=== PATIENT | female | born 1970 | race Caucasian/White ===

== ENCOUNTER 2016-12-26 11:31 | Observation (INO) ==
[2016-12-26 12:08] LABS: Bilirubin,Urine Negative (Negative); Blood,Urine Large (Negative); Clarity,Urine Clear (Clear); Color,Urine Yellow (Yellow); Glucose,Urine (UA) Normal (Normal); Ketones,Urine Negative (Negative); Leukocyte Esterase,Urine Negative (Negative); Nitrite,Urine Negative (Negative); PH,Urine 6.5 pH Units (5.0-8.0); Protein,Urine Negative (Neg-Trace); Specific Gravity,Urine 1.007 (1.010-1.025); Urobilinogen,Urine Normal (Normal)
--- NOTE | 2016-12-26 12:12 | Emergency Department Note ---
Disposition Clinical Impression: Appendiceal abscess Disposition: Admitted As Inpatient Condition: Good Referrals: Elizabeth Ayers CNP [Primary Care Provider] - Forms: ED Satisfaction Letter, Work/School Release General Adult HPI - General Chief complaint: ED Abdominal Pain Stated complaint: Referral for appendicitis Time Seen by Provider: 12/26/16 11:40 Source: patient Limitations: no limitations - History of Present Illness HPI Narrative: Patient sent from her doctor's office for evaluation for possible appendicitis. Was originally seen by her doctor 3 weeks ago and diagnosed with pyelonephritis, prescribed Macrobid. Completed a seven-day course. She had 100.6 temperature at that point, felt febrile over the course of the following week, but has not had fever since. She vomited once on the day of presentation to her physician, but has not vomited since. No further nausea. She does have lack of appetite. Pain was made worse with bumps on the way home from the doctor's office 3 weeks ago, but she said none of these symptoms since then. Walking makes it a little bit worse. It is present most of the time with intermittent waves of worsening. It occasionally radiates towards her groin. No left-sided symptoms. She has been having a normal number of loose, nonbloody stools. She is status post cholecystectomy, tubal ligation, , has not had a hysterectomy and appendectomy. She has had no further hematuria , dysuria, frequency or urgency. She was having her. When she presented initially 3 weeks ago, no vaginal bleeding since, no vaginal discharge. No cough, chest pain or shortness of breath. Pain Scale: 5 - Related Data Allergies Allergy/AdvReac Type Severity Reaction Status Date / Time ciprofloxacin [From Cipro] Allergy Back Pain Verified 12/26/16 11:35 levofloxacin [From Levaquin] Allergy Back Pain Verified 12/26/16 11:35 All systems ED: reviewed and negative except as stated. Past Medical History - Past Medical History Medical history: Reports: no medical history Psychiatric history: Reports: no psych history - Social History Smoking Status: Never smoker Smokeless Tobacco Status: No Alcohol use: Reports: none Drug use: Reports: none Physical Exam Vital signs noted please see nurse's notes. Gen.: Well-developed, well-nourished patient lying in bed who appears nontoxic. Head: Atraumatic, normocephalic. Eyes: Sclerae anicteric. ENT: Mucous membranes moist. Heart: Regular rate and rhythm without appreciable murmur. Lungs: Normal respiratory pattern without respiratory distress, lungs clear to auscultation bilaterally. Abdomen: Soft, right periumbilical and right upper quadrant tenderness, no guarding. Minimal tenderness in the left lower quadrant right lower quadrant, no tenderness over McBurney's point. No rebound. Negative Rovsing. Back: No CVA tenderness. Skin: Warm and dry without rash. Neurologic: Awake, alert with normal speech and mental status. Cranial nerves grossly intact. No focal deficits or lateralizing signs. Psychiatric: Normal mood and affect. - General Limitations: no limitations General appearance: alert, in no apparent distress Course Vital Signs Temperature 98.3 F 12/26/16 11:32 Pulse Rate 105 12/26/16 11:32 Respiratory Rate 18 12/26/16 11:32 Blood Pressure 154/87 12/26/16 11:32 O2 Sat by Pulse Oximetry 97 12/26/16 11:32 Temperature 98.3 F 12/26/16 11:32 Pulse Rate 92 12/26/16 12:31 Respiratory Rate 16 12/26/16 12:31 Blood Pressure 158/93 12/26/16 12:31 O2 Sat by Pulse Oximetry 95 12/26/16 12:31 Oxygen Delivery Oxygen Delivery Room Air Medical Decision Making - [facility] Narrative Medical decision making narrative: Presentation not typical for appendicitis, she has had symptoms for 3 weeks, is not tender over McBurney's point, has not had fever since she initially presented with what her doctor diagnosed as a kidney infection. It is possible however that she had appendicitis when she initially presented 3 weeks ago, and since ruptured and walled off. I do not consider this likely, considering how nontoxic she is in appearance, but it is in the differential. If she truly had a pyelonephritis as opposed to febrile cystitis on presentation 3 weeks ago, Macrobid would not have been the best choice. Untreated or undertreated pyelonephritis can lead to Other complications such as perinephric abscess that should be ruled out. Again, my suspicion for these is low, given how nontoxic in appearance she is and her lack of peritoneal signs. Suspicion for dangerous process is low based on the timeline and her nontoxic appearance, however she does have a fairly significant level of tenderness and a somewhat concerning history. I discussed this with her in detail, including a discussion of the downsides of CT scanning including cost, contrast administration and radiation. We will proceed with CT scan at this point, as I believe that the risks of missing an important diagnosis, although low, outweigh the potential risks of CT scanning. - Lab Data Lab Results 12/26/16 12/26/16 Range/Units 11:58 11:58 Urine Color Yellow (Yellow) Urine Clarity Clear (Clear) Urine pH 6.5 (5.0-8.0) pH Units Ur Specific [place] 1.007 L (1.010-1.025) Urine Protein Negative (Neg-Trace) mg/dL Urine Glucose (UA) Normal (Normal) mg/dL Urine Ketones Negative (Negative) mg/dL Urine Blood Large H (Negative) Urine Nitrite Negative (Negative) Urine Bilirubin Negative (Negative) Urine Urobilinogen Normal (Normal) mg/dL Ur Leukocyte Esterase Negative (Negative) Urine Microscopic RBC 3-5 H (0-3) per hpf Urine Microscopic WBC 3-5 H (0-3) per hpf Ur Squamous Epith Cells Few (None-Few) per lpf Urine Bacteria Few (None-Few) per hpf Urine Test Negative (Negative)
[2016-12-26 12:14] LABS: Bacteria,Urine Few per hpf (None-Few); Squamous Epithelial Cell,Urine Few per lpf (None-Few)
[2016-12-26] MEDS ORDERED: PIPERACILLIN IVPB ONE (13:06)
[2016-12-26] MEDS ORDERED: D5 IVPB ONE (13:06)
[2016-12-26] MEDS ORDERED: TAZOBACTAM IVPB ONE (13:06)
[2016-12-26] MEDS ORDERED: WATER IVPB ONE (13:06)
[2016-12-26 13:23] LABS: Basophils % 0.3 %; Eosinophils % 0.1 %; Hematocrit 31.6 % (35.3-44.9); Hemoglobin 10.2 g/dL (11.5-15.4); Immature Granulocytes % 0.4 % (0-4); Lymphocytes # 1.1 K/mcL (0.6-4.6); Mean Corpuscular HGB Conc 32.3 g/dL (31.6-35.5); Mean Corpuscular Hemoglobin 27.9 pg (28.0-33.3); Mean Corpuscular Volume 86.6 fL (83.0-100.0); Mean Platelet Volume 9.6 fL (9.4-12.4); Monocytes # 0.7 K/mcL (0.0-1.3); Monocytes % 7.1 %; Neutrophils # 8.1 K/mcL (1.6-8.9); Platelet Count 351 K/mcL (140-400); Red Blood Count 3.65 M/mcL (3.82-4.97); Red Cell Distribution Width 14.1 % (11.5-14.5); Segmented Neutrophils % 81.1 %
[2016-12-26 13:31] LABS: BUN/Creatinine Ratio 12 (6-26); Blood Urea Nitrogen 8 mg/dL (7-20); Calcium 8.4 mg/dL (8.6-10.8); Carbon Dioxide 23 mEq/L (19-29); Chloride 104 mEq/L (98-109); Glucose 100 mg/dL (70-99); Osmolality,Calculated 284 (280-300); Potassium 3.7 mEq/L (3.5-4.5); Sodium 138 mEq/L (136-145); eGFR For African Americans > 60 (> 60); eGFR For Non-African Americans > 60 (> 60)
[2016-12-26] MEDS ORDERED: Ondansetron 4 MG/2 ML VIAL IVP PRN (14:20)
[2016-12-26] MEDS ORDERED: Naloxone 0.4 MG/ML INJ IVP PRN (14:20)
[2016-12-26] MEDS ORDERED: *HR* HYDROmorphone (PF) 1 MG/ML SYRINGE IVP PRN (14:22)
[2016-12-26] MEDS ORDERED: Acetaminophen 325 MG TABLET PO PRN (14:22)
[2016-12-26] MEDS ORDERED: *HR* OxyCODONE/APAP 5/325 TABLET PO PRN (14:22)
[2016-12-26] MEDS ORDERED: 0.9 % Sodium Chloride 1,000 ML IVC SCH (14:30)
--- NOTE | 2016-12-26 14:34 | General Surg History&Physical ---
Date of Encounter: 12/26/16 Time of Encounter: 14:30 Assessment and Plan (1) Appendiceal abscess Current Visit: Yes Status: Acute The assessment and plan as outlined above was discussed with the patient and/or family members who expressed understanding and agreement. All questions were answered. NPO for IR drainage of periappendiceal abscess Regular diet after drainage IV antibiotics- Zosyn IV fluids- 75ml/hour Cultures from periappendiceal abscess- orders entered for IR Supportive care and pain control PPI therapy daily IS every 1 hour while awake Ambulate hallways TID Plan for interval appendectomy in 6-[address] Brower (2) Pulmonary nodule, left Current Visit: Yes Status: Acute The assessment and plan as outlined above was discussed with the patient and/or family members who expressed understanding and agreement. All questions were answered. Patient will need follow CT to re-evaluate nodule in 6-12 months per Fleischner guidelines (3) DVT prophylaxis Current Visit: Yes Status: Acute The assessment and plan as outlined above was discussed with the patient and/or family members who expressed understanding and agreement. All questions were answered. Ambulate hallways TID with assistance History of Present Illness Chief complaint: Abdominal discomfort HPI: Ms. 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 She states that she had onset of right-sided abdominal pain approximately 3 weeks ago. At that time she presented to her primary care provider office and was treated for a UTI. She states she was given Macrobid for 7 days and that her pain did initially improve. She states that after a few days the pain began to progress. She states that she attributed the pain to an ongoing UTI and treated it with supportive measures at home. 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 On ultrasound, were they were too able to see an irregular fluid collection on imaging. She was sent to the emergency department for further workup and evaluation. The patient states that her pain is intermittent and she describes it as a sharp and stabbing pain at times. She states that the pain has not affected her activities of daily living and that she is continued to work for the last 3 weeks. She states that she has no appetite but denies any weight loss. She denies any nausea or vomiting. She did have fevers up to 100.6 (3 weeks ago) but states she has had no recurrence of fever since that time. She does have occasional chills. Denies any difficulty with urination. Denies any shortness of breath or chest pains. She did have a CAT scan evaluation in the emergency department which did show evidence of a perforated appendicitis with periappendiceal abscess. The patient 's been admitted to the hospital for further workup and treatment. Past Med Surg Social Fam HX - Past Medical History Source: patient Medical history: no medical history Psychiatric history: no psych history - Past Surgical History Surgical History: (X2), cholecystectomy, other (Tubal ) - Social History Smoking Status: Never smoker Smokeless Tobacco Status: No Alcohol use: none Drug use: none Occupational status: employed Current living situation: Home - Independent Activity Level: Independent ambulation - Family History Mother Living Status: Still Living Hx Family Autoimmune Disorders: Yes (Rheumatoid arthritis) Father Living Status: Still Living Hx Family Cardiac Disorders: Yes (CAD) Hx Family Cancer: Yes (Bladder, Prostate, Skin) Sister Living Status: Still Living Hx Family Cardiac Disorders: Yes (HTN) Medications and Allergies No Known Home Drugs 12/26/16 [History] 3 Allergy/AdvReac Type Severity Reaction Status Date / Time ciprofloxacin [From Cipro] Allergy Back Pain Verified 12/26/16 11:35 levofloxacin [From Levaquin] Allergy Back Pain Verified 12/26/16 11:35 Review of Systems All systems PM: reviewed and no additional remarkable complaints except as stated (in the HPI) All systems PM: A 10-system review of systems was performed and is negative for pertinent findings except as documented above in the HPI. General Surgery Exam Initial Vital Signs Temp Pulse Resp BP Pulse Ox 98.3 F 105 18 154/87 97 12/26/16 11:32 12/26/16 11:32 12/26/16 11:32 12/26/16 11:32 12/26/16 11:32 - General physical appearance well developed, well nourished, no distress - Eyes normal ocular movement - ENT normal mucosa, atraumatic, normocephalic - Neck trachea midline - Respiratory normal expansion, normal respiratory effort, clear to auscultation - Cardiovascular Cardiovascular exam: Present: RRR - Abdomen Abdomen general surgery: Present: bowel sounds present, soft, tender (mildly) Abdominal Tenderness: Present: RUQ - Integumentary Integumentary general surgery: Present: warm and dry - Neurologic Present: CN 2-12 grossly intact - Musculoskeletal Present: normal gait, normal posture - Psychiatric Psychiatric general surgery: Present: appropriate, oriented to person, oriented to place, oriented to time, speech is normal, memory intact Results - Labs 12/26/16 13:14 12/26/16 13:14 Abnormal lab results RBC 3.65 M/mcL (3.82-4.97) L 12/26/16 13:14 Hgb 10.2 g/dL (11.5-15.4) L 12/26/16 13:14 Hct 31.6 % (35.3-44.9) L 12/26/16 13:14 MCH 27.9 pg (28.0-33.3) L 12/26/16 13:14 Glucose 100 mg/dL (70-99) H 12/26/16 13:14 Calcium 8.4 mg/dL (8.6-10.8) L 12/26/16 13:14 Ur Specific [place] 1.007 (1.010-1.025) L 12/26/16 11:58 Urine Blood Large (Negative) H 12/26/16 11:58 Urine Microscopic RBC 3-5 per hpf (0-3) H 12/26/16 11:58 Urine Microscopic WBC 3-5 per hpf (0-3) H 12/26/16 11:58 Diabetes panel 12/26/16 Range/Units 13:14 Sodium 138 (136-145) mEq/L Potassium 3.7 (3.5-4.5) mEq/L Chloride 104 (98-109) mEq/L Carbon Dioxide 23 (19-29) mEq/L BUN 8 (7-20) mg/dL Creatinine 0.68 (0.57-1.11) mg/dL Glucose 100 H (70-99) mg/dL Calcium 8.4 L (8.6-10.8) mg/dL Calcium panel 12/26/16 Range/Units 13:14 Calcium 8.4 L (8.6-10.8) mg/dL Pituitary panel 12/26/16 Range/Units 13:14 Sodium 138 (136-145) mEq/L Potassium 3.7 (3.5-4.5) mEq/L Chloride 104 (98-109) mEq/L Carbon Dioxide 23 (19-29) mEq/L BUN 8 (7-20) mg/dL Creatinine 0.68 (0.57-1.11) mg/dL Glucose 100 H (70-99) mg/dL Calcium 8.4 L (8.6-10.8) mg/dL Adrenal panel 12/26/16 Range/Units 13:14 Sodium 138 (136-145) mEq/L Potassium 3.7 (3.5-4.5) mEq/L Chloride 104 (98-109) mEq/L Carbon Dioxide 23 (19-29) mEq/L BUN 8 (7-20) mg/dL Creatinine 0.68 (0.57-1.11) mg/dL Glucose 100 H (70-99) mg/dL Calcium 8.4 L (8.6-10.8) mg/dL All other labs normal. - Imaging CT scan - abdomen: report reviewed CT scan - pelvis: report reviewed Additional studies: Abdomen/Pelvis CT 12/26/16 12:08 IMPRESSION: 1. CT evidence compatible with perforated appendicitis with a right lower quadrant abscess measuring 7.2 x 4.3 x 4.7 cm. 2. Prominent soft tissues identified in the base of the cecum near the origin of the appendix (series 2, image 87 and coronal image 57). Findings may represent reactive wall thickening related to perforated appendicitis. Malignancy remains a differential consideration. 3. Mild diverticulosis. 4. 8 mm left lower lobe pulmonary nodule. According to current guidelines, CT at 6-12 months is recommended. Findings were discussed with Dr. Arboleda on 12/26/2016 at 1 p.m. RECOMMENDATIONS: Fleischner Society guidelines for follow-up and management of incidentally detected pulmonary nodules: Single Solid Nodule: Nodule size equals 6-8 mm In a low-risk patient, CT at 6-12 months, then consider CT at 18-24 months. In a high-risk patient, CT at 6-12 months, then CT at 18-24 months. Radiology 2017 http://pubs.rsna.org/doi/full/10.1148/radiol.[email or web address] D/ / 12/26/2016 13:20:53 Chey Talbot MD / robe Interpreting Provider: Chey Talbot MD - Attending Attestation For this encounter, I have reviewed the PUPPET DEVELOPER or PA documentation, treatment plan, and medical decision making; and I have had face to face time with this patient.
[2016-12-26] MEDS ORDERED: *HR* Midazolam HCl 2 MG/2 ML VIAL IVP ONE (14:57)
[2016-12-26] MEDS ORDERED: *HR* FentaNYL (PF) 100 MCG/2 ML VIAL IVP ONE (14:57)
--- NOTE | 2016-12-26 14:59 | Pre-Sedation Evaluation ---
Pre-sedation evaluation - Pre-sedation checklist Date of procedure: 12/26/16 Procedure: Abscess drainage Recent Vitals: Last Vital Signs Temp 98.3 F 12/26/16 13:55 Pulse 90 12/26/16 13:55 Resp 16 12/26/16 13:55 BP 137/82 12/26/16 13:55 Pulse Ox 96 12/26/16 13:55 H&P (including ROS) documented in medical record: Yes Previous reaction to sedatives/anesthetics: No Dietary Status: NPO 6 hours prior to procedure Airway Assessment: Patient can open mouth completely, TMJ function normal, Micrognathia (under-bite, receding chin) absent, Neck with adequate range of motion Possible difficult airway: No ASA Classification *see protocol: CLASS II-Mild systemic disease Plan of Care: Pt appropriate candidate for procedure/moderate/conscious sedation , Risks/benefits of procedure/sedation discussed w/ patient/family, If not NPO; Risk of intake outweiged by necessity to perform procedure
[2016-12-26] MEDS ORDERED: *HR* Midazolam HCl 2 MG/2 ML VIAL ONE (15:00)
[2016-12-26] MEDS ORDERED: 0.9 % Sodium Chloride 500 ML ONE (15:00)
[2016-12-26] MEDS ORDERED: *HR* FentaNYL (PF) 100 MCG/2 ML VIAL ONE (15:00)
--- NOTE | 2016-12-26 15:18 | IR Procedure Note ---
Date of procedure: 12/26/16 Consent Obtained: Written consent Timeout: Correct patient and procedure verified, Correct site verified, Time out performed, Skin prep completed Indications: RLQ abscess Procedure Performed: drain Site/Technique: 14F drain in RLQ Results/Findings: removed 40cc of thick smelly pus Estimated blood loss (cc): 2 Complications: None; Tolerated procedure well Post Procedure Treatment Plan: suction bulb
[2016-12-26] MEDS: Ibuprofen 800 MG TABLET PO SCH (16:01)
[2016-12-26] MEDS: Piperacillin/Tazobactam 3.375 GM in D5% in Water 50 ML IVPB SCH (16:53)
[2016-12-27] MEDS: Piperacillin/Tazobactam 3.375 GM in D5% in Water 50 ML IVPB SCH ×2 (00:59→08:23)
[2016-12-27] MEDS: Ibuprofen 800 MG TABLET PO SCH ×2 (00:59→08:24)
[2016-12-27] MEDS ORDERED: Ringers Solution, Lactated 500 ML IVC ONE (02:08)
--- NOTE | 2016-12-27 11:03 | Discharge Summary ---
Date of Encounter: 12/27/16 Time of Encounter: 10:59 - Discharge Diagnosis (1) Appendiceal abscess Priority: Primary Status: Acute - Discharge Medications Prescriptions: Ibuprofen [Motrin] 800 mg PO Q8HR #30 tablet Amoxicillin/Clavulanate [Augmentin] 875 mg PO BIDWM #28 tablet metroNIDAZOLE [Flagyl] 500 mg PO TID #42 tablet Home Medications: Amoxicillin/Clavulanate [Augmentin] 875 mg PO BIDWM #28 tablet 12/27/16 [Rx] Ibuprofen [Motrin] 800 mg PO Q8HR #30 tablet 12/27/16 [Rx] metroNIDAZOLE [Flagyl] 500 mg PO TID #42 tablet 12/27/16 [Rx] Allergies/Adverse Reactions: 3 Allergy/AdvReac Type Severity Reaction Status Date / Time ciprofloxacin [From Cipro] Allergy Back Pain Verified 12/26/16 11:35 levofloxacin [From Levaquin] Allergy Back Pain Verified 12/26/16 11:35 General Surgery Exam Initial Vital Signs Temp Pulse Resp BP Pulse Ox 98.3 F 105 18 154/87 97 12/26/16 11:32 12/26/16 11:32 12/26/16 11:32 12/26/16 11:32 12/26/16 11:32 - General physical appearance well developed, well nourished, no distress - Neck no bruits, trachea midline, no lymphadectomy, no venous distension - Respiratory normal expansion, normal respiratory effort, clear to percussion, clear to auscultation - Cardiovascular Cardiovascular exam: Present: RRR, 15, 16 - Abdomen Abdomen general surgery: Present: bowel sounds present, soft, wound (BILL drain with small amount of purluent material) Hernia: Present: none - Integumentary Integumentary general surgery: Present: warm and dry, no abnormal pigmentation - Neurologic Present: CN 2-12 grossly intact, normal coordination, normal sensation - Musculoskeletal Present: normal gait, normal posture - Psychiatric Psychiatric general surgery: Present: A&Ox3, appropriate, oriented to person, oriented to place, oriented to time, speech is normal, memory intact Date of admission: 12/26/16 13:12 Primary care physician: Elizabeth Ayers, Consults: 12/26/16 14:15 Consult to Interventional Radiology [CONS] Stat Consulting Provider: Radiology Interventional Cols Reason for Consult: IR drain placement of periappendiceal abscess Time Notified: 14:16 Call Completed: Yes Discharging clinician: Jeremiah Brower (Colt Dwyer) Anticipated date of discharge: 12/27/16 - Patient Status Disposition: Home, Self-Care Condition: Good Functional capacity at discharge: independent ambulation Overall status at discharge: patient is progressing back to baseline - Discharge Instructions Instructions: [facility] Drain Care (DC) Follow Up With: Elizabeth Ayers CNP [Primary Care Provider] - Iman Dwyer CNP [Advanced Practice Nurse] - 01/12/17 8:00 am Additional Instructions: Take your antibiotics as directed. Return to the office for your follow-up appointment Record you BILL output and bring this to your follow-up appointment. - Diet and Activity Activity: increase activity as tolerated Diet: advance to your usual diet - Hospital Course Hospital course: Ms. Almazan is a 46 year old female who presented on 12/26/2016 with complaints of abdominal discomfort. 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 She had recently been diagnosed/treated for a UTI and was given Macrobid for 7 days that did improve her pain initially. She had a fever of 100.6 apparently 3 weeks ago but had no recurrence of fever. Her CAT scan evaluation in the emergency department showed evidence of a perforated appendix with periappendeceal abscess. She was taken to IR where she had a drain placed and noted 40 ml of purulent material returned. She is ambulating and voiding without difficulty, tolerating a regular diet without nausea or vomiting, her vital signs are stable and she is afebrile, we will begin discharge planning with a follow-up office in approximately 7 to 10 days. She will be discharged on Augmentin and Flagyl given her allergy to Cipro and levo. - Time Spent with Patient Total time spent providing and/or coordinating discharge services: Labs on day of discharge: Labs from last 24 hours 12/26/16 12/26/16 13:14 13:14 WBC 10.0 RBC 3.65 L Hgb 10.2 L Hct 31.6 L MCV 86.6 MCH 27.9 L MCHC 32.3 RDW 14.1 Plt Count 351 MPV 9.6 Immature Gran % 0.4 Seg Neutrophils % 81.1 Lymphocytes % 11.0 Monocytes % 7.1 Eosinophils % 0.1 Basophils % 0.3 Neutrophils # 8.1 Lymphocytes # 1.1 Monocytes # 0.7 Eosinophils # 0.0 Basophils # 0.0 Sodium 138 Potassium 3.7 Chloride 104 Carbon Dioxide 23 BUN 8 Creatinine 0.68 Est GFR ( Amer) > 60 Est GFR (Non-Af Amer) > 60 BUN/Creatinine Ratio 12 Glucose 100 H Calculated Osmolality 284 Calcium 8.4 L - Impressions ITS Impressions Abscess Drainage CT 12/26/16 14:16 IMPRESSION: Successful CT guided placement of periappendiceal abscess drainage catheter. Moderate sedation given over 30 minutes. 40 mL of pus removed and sent for cultures. D/ / 12/26/2016 16:46:39 Ashlyn Franklin MD / [facility] Interpreting Provider: Ashlyn Franklin MD
[2016-12-27 11:46] VITALS: BP 121/65
== END 2016-12-27 14:01 | disposition home or self-care (01) ==
LOC: EMEROO 11:31 → 3ANU 11:31
PROVIDERS: ADMIT Surgery; ATTEND Surgery
PROC: IRDRAIN (2016-12-26 14:20)